=== PATIENT | male | born 1985 | race Caucasian/White ===

== ENCOUNTER 2019-10-02 11:00 | Emergency (ER) | payer OTHER ==
[~2019-10-02] VITALS: Ht 193 cm; Wt 99.5 kg
[2019-10-02 11:05] VITALS: BP 150/67
[2019-10-02] MEDS ORDERED: IV NORMAL SALINE 1,000ML 1,000 ML IV SCH (11:14)
[2019-10-02] MEDS ORDERED: ONDANSETRON PF 4 MG/2 ML VIAL. IVP ONE (11:15)
[2019-10-02] MEDS ORDERED: IOHEXOL 300 MG/ML 75 ML VIAL. IV ONE (11:30)
[2019-10-02 11:51] LABS: BASO % 1 % (0-3); EOS % 1 % (0-3); HEMATOCRIT 49.8 % (39.0-53.0); HEMOGLOBIN 16.8 g/dL (13.0-17.5); LYMPH # 1.8 x10^3/uL (1.0-4.8); LYMPH % 44 % (24-48); MEAN CORPUSCULAR HEMOGLOBIN 31 pg (25-35); MEAN CORPUSCULAR HGB CONC 34 g/dL (31-37); MEAN CORPUSCULAR VOLUME 91 fL (79-100); MONO # 0.3 x10^3/uL (0.0-1.1); MONO % 8 % (0-9); NEUT # 1.9 x10^3uL (1.8-7.7); NEUT % 47 % (31-73); PLATELET COUNT 171 x10^3/uL (140-400); RED BLOOD COUNT 5.47 x10^6/uL (4.30-5.70); RED CELL DISTRIBUTION WIDTH 12.9 % (11.5-14.5)
--- NOTE | 2019-10-02 11:58 | RAD ---
EXAM: CT Abdomen and Pelvis with IV contrast CLINICAL HISTORY: Right lower quadrant abdominal pain COMPARISON: none TECHNIQUE: Helical CT of the abdomen and pelvis was performed following the administration of intravenous contrast. Axial, coronal and sagittal reformatted images were generated. PQRS compliance statement - One or more of the following individualized dose reduction techniques were utilized for this study: 1. Automated exposure control 2. Adjustment of the mA and/or kV according to patient size 3. Use of iterative reconstruction technique FINDINGS: Lower chest: Lung bases are clear. Abdomen and Pelvis: A 1.8 cm hypodense right hepatic lobe lesion measures greater than simple fluid, nonspecific. Gallbladder is normal. No biliary ductal dilatation. Pancreas is unremarkable. Spleen is unremarkable. Adrenal glands are normal. Symmetric nephrograms. Subcentimeter hypodense left upper pole renal lesion is too small to accurately characterize. No hydronephrosis or hydroureter. Bladder is unremarkable. Appendix is normal. Moderate colonic stool content is seen. No small or large bowel dilatation. No bowel obstruction. No abdominal or pelvic ascites. Small fat-containing periumbilical hernia is seen. No abdominal or pelvic lymphadenopathy. Bones: Multilevel degenerative changes of the spine are seen. Lucent lesion within the right intertrochanteric hip with a well circumscribed margins, without definite aggressive characteristics. IMPRESSION: 1. Appendix is normal. 2. No renal tract calculus. 3. No bowel obstruction. 4. Nonspecific hypodense right hepatic lesion measures greater than simple fluid, can be further assessed by ultrasound Electronically signed by: Mandeep Gore MD (10/02/2019 11:56 AM) [id number]
[2019-10-02 12:04] LABS: ALBUMIN/GLOBULIN RATIO 1.1 (1.0-1.7); CALCIUM 9.1 mg/dL (8.5-10.1); CREATININE 1.2 mg/dL (0.7-1.3); GFR 70.2; POTASSIUM 4.1 mmol/L (3.5-5.1); TOTAL BILIRUBIN 1.8 mg/dL (0.2-1.0); TOTAL PROTEIN 7.5 g/dL (6.4-8.2)
[2019-10-02 12:23] LABS: BILIRUBIN,URINE NEG (NEG); CLARITY,URINE CLEAR; COLOR,URINE YELLOW; GLUCOSE,URINE NEG (NEG); NITRITE,URINE NEG (NEG); UROBILINOGEN,URINE 0.2 mg/dL (0.2 mg/dL)
[2019-10-02 12:24] LABS: BACTERIA,URINE 0 /HPF (0-FEW); RBC,URINE OCC /HPF (0-2); WBC,URINE OCC /HPF (0-4)
--- NOTE | 2019-10-02 12:25 | PHYS DOC ---
Past History Past Medical History: No Pertinent History Alcohol Use: Occasionally Adult General Chief Complaint Chief Complaint: NAUSEA/VOMITING/DIARRHEA HPI HPI Patient is a 34 year old male who presents with complaint of abdominal pain. The patient states that his symptoms have been present over the past 4 to 5 days. Notes that the pain seems to be centered in his right lower quadrant. Currently rates his pain as 3 out of 10 and describes it as a dull ache. Denies any worsening sharp pain with activity or movement. Does state that the pain does not seem to be there while at rest but that does notice the pain when he is active. The patient states that he had vomiting upon onset 4 days ago. Did not have any nausea or vomiting until this morning when he had an episode of dry heaves. Has not had any fevers. Denies any known sick contacts. The patient states that he went to urgent care for evaluation last night and was placed on nausea medication. Due to return of symptoms he went to urgent care this morning and was referred to the emergency department for further evaluation due to the presence of right lower quadrant pain. Review of Systems Review of Systems Constitutional: Denies fever or chills [] Eyes: Denies change in visual acuity, redness, or eye pain [] HENT: Denies nasal congestion or sore throat [] Respiratory: Denies cough or shortness of breath [] Cardiovascular: Denies chest pain or edema [] GI: Abdominal pain, nausea, vomiting, denies bloody stools or diarrhea [] : Denies dysuria or hematuria [] Musculoskeletal: Denies back pain or joint pain [] Integument: Denies rash or skin lesions [] Neurologic: Denies headache, focal weakness or sensory changes [] All other systems were reviewed and found to be within normal limits, except as documented in this note. Current Medications Current Medications Current Medications Medications (Trade) Dose Ordered Sig/José Miguel Start Time Stop Time Status Last Admin Dose Admin Iohexol (Omnipaque 300 Mg/ml) 75 ml 1X ONCE 10/02/19 11:30 10/02/19 11:31 DC 10/02/19 11:32 75 ML Ondansetron HCl (Zofran) 4 mg 1X ONCE 10/02/19 11:15 10/02/19 11:17 DC 10/02/19 11:44 4 MG Sodium Chloride 1,000 ml @ 1,000 mls/hr Q1H 10/02/19 11:14 10/02/19 12:13 DC 10/02/19 11:44 1,000 MLS/HR Allergies Allergies Allergies Coded Allergies Type Severity Reaction Last Updated Verified sulfamethoxazole Allergy Unknown 10/02/19 Yes trimethoprim Allergy Unknown 10/02/19 Yes Physical Exam Physical Exam Constitutional: Well developed, well nourished, no acute distress, non-toxic appearance. [] HENT: Normocephalic, atraumatic, bilateral external ears normal, oropharynx moist, no oral exudates, nose normal. [] Eyes: PERRLA, EOMI, conjunctiva normal, no discharge. [] Neck: Normal range of motion, no tenderness, supple, no stridor. [] Cardiovascular:Heart rate regular rhythm, no murmur [] Lungs & Thorax: Bilateral breath sounds clear to auscultation [] Abdomen: Bowel sounds normal, soft, n mild tenderness palpation in the right lower quadrant, no guarding or rebound tenderness, no masses, no pulsatile masses. [] Skin: Warm, dry, no erythema, no rash. [] Back: No tenderness, no CVA tenderness. [] Extremities: No tenderness, no cyanosis, no clubbing, ROM intact, no edema. [] Neurologic: Alert and oriented X 3, normal motor function, normal sensory function, no focal deficits noted. [] Current Patient Data Vital Signs Vital Signs Date Time Temp Pulse Resp B/P (MAP) Pulse Ox O2 Delivery O2 Flow Rate FiO2 10/02/19 11:05 98.3 60 16 150/67 (94) 98 Room Air Lab Results Laboratory Tests Test 10/02/19 11:30 10/02/19 11:43 White Blood Count 4.0 x10^3/uL Red Blood Count 5.47 x10^6/uL Hemoglobin 16.8 g/dL Hematocrit 49.8 % Mean Corpuscular Volume 91 fL Mean Corpuscular Hemoglobin 31 pg Mean Corpuscular Hemoglobin Concent 34 g/dL Red Cell Distribution Width 12.9 % Platelet Count 171 x10^3/uL Neutrophils (%) (Auto) 47 % Lymphocytes (%) (Auto) 44 % Monocytes (%) (Auto) 8 % Eosinophils (%) (Auto) 1 % Basophils (%) (Auto) 1 % Neutrophils # (Auto) 1.9 x10^3uL Lymphocytes # (Auto) 1.8 x10^3/uL Monocytes # (Auto) 0.3 x10^3/uL Eosinophils # (Auto) 0.0 x10^3/uL Basophils # (Auto) 0.0 x10^3/uL Sodium Level 143 mmol/L Potassium Level 4.1 mmol/L Chloride Level 106 mmol/L Carbon Dioxide Level 29 mmol/L Anion Gap 8 Blood Urea Nitrogen 17 mg/dL Creatinine 1.2 mg/dL Estimated GFR (Cockcroft-Gault) 70.2 BUN/Creatinine Ratio 14 Glucose Level 98 mg/dL Calcium Level 9.1 mg/dL Total Bilirubin 1.8 mg/dL Aspartate Amino Transf (AST/SGOT) 18 U/L Alanine Aminotransferase (ALT/SGPT) 23 U/L Alkaline Phosphatase 91 U/L Total Protein 7.5 g/dL Albumin 4.0 g/dL Albumin/Globulin Ratio 1.1 Lipase 125 U/L Urine Collection Type Unknown Urine Color Yellow Urine Clarity Clear Urine pH 6.5 Urine Specific [place] 1.020 Urine Protein Neg Urine Glucose (UA) Neg mg/dL Urine Ketones (Stick) Neg mg/dL Urine Blood Neg Urine Nitrite Neg Urine Bilirubin Neg Urine Urobilinogen Dipstick 0.2 mg/dL Urine Leukocyte Esterase Neg Urine RBC Occ /HPF Urine WBC Occ /HPF Urine Squamous Epithelial Cells None /LPF Urine Bacteria 0 /HPF Current Medications Medications (Trade) Dose Ordered Sig/José Miguel Route PRN Reason Start Time Stop Time Status Last Admin Dose Admin Sodium Chloride 1,000 ml @ 1,000 mls/hr Q1H IV 10/02/19 11:14 10/02/19 12:13 DC 10/02/19 11:44 Ondansetron HCl (Zofran) 4 mg 1X ONCE IVP 10/02/19 11:15 10/02/19 11:17 DC 10/02/19 11:44 Iohexol (Omnipaque 300 Mg/ml) 75 ml 1X ONCE IV 10/02/19 11:30 10/02/19 11:31 DC 10/02/19 11:32 EKG EKG Not performed [] Radiology/Procedures Radiology/Procedures [address] [address] IMAGING REPORT Signed PATIENT: ALFONZO MAIER ACCOUNT: [id number] : 1985 LOCATION: ER AGE: 34 SEX: M EXAM STATUS: REG ER ORD. PHYSICIAN: LEESA RAZO MD REASON: Right lower quadrant abdominal pain PROCEDURE: CT ABD PELV W/ IV CONTRST ONLY EXAM: CT Abdomen and Pelvis with IV contrast CLINICAL HISTORY: Right lower quadrant abdominal pain COMPARISON: none TECHNIQUE: Helical CT of the abdomen and pelvis was performed following the administration of intravenous contrast. Axial, coronal and sagittal reformatted images were generated. PQRS compliance statement - One or more of the following individualized dose reduction techniques were utilized for this study: 1. Automated exposure control 2. Adjustment of the mA and/or kV according to patient size 3. Use of iterative reconstruction technique FINDINGS: Lower chest: Lung bases are clear. Abdomen and Pelvis: A 1.8 cm hypodense right hepatic lobe lesion measures greater than simple fluid, nonspecific. Gallbladder is normal. No biliary ductal dilatation. Pancreas is unremarkable. Spleen is unremarkable. Adrenal glands are normal. Symmetric nephrograms. Subcentimeter hypodense left upper pole renal lesion is too small to accurately characterize. No hydronephrosis or hydroureter. Bladder is unremarkable. Appendix is normal. Moderate colonic stool content is seen. No small or large bowel dilatation. No bowel obstruction. No abdominal or pelvic ascites. Small fat-containing periumbilical hernia is seen. No abdominal or pelvic lymphadenopathy. Bones: Multilevel degenerative changes of the spine are seen. Lucent lesion within the right intertrochanteric hip with a well circumscribed margins, without definite aggressive characteristics. IMPRESSION: 1. Appendix is normal. 2. No renal tract calculus. 3. No bowel obstruction. 4. Nonspecific hypodense right hepatic lesion measures greater than simple fluid, can be further assessed by ultrasound Electronically signed by: Mandeep Eldridge MD (10/02/2019 11:56 AM) [id number] DICTATED AND SIGNED BY: MANDEEP ELDRIDGE MD DATE: 10/02/19 1156 CC: LEESA RAZO MD; PCP,UNKNOWN ~ [] Course & Med Decision Making Course & Med Decision Making Pertinent Labs and Imaging studies reviewed. (See chart for details) Patient was started on IV fluids and Zofran in the emergency department. Patient's blood work showed a mildly elevated bilirubin level of 1.8 with otherwise normal liver function testing. Urinalysis was normal. Due to persistent right lower quadrant pain, a CT scan was ordered of the abdomen and pelvis. No evidence of obstructive uropathy, appendicitis, or acute inflammatory process. Incidental finding of small hepatic lobe lesion was noted and communicated to the patient. Advised that this would need further evaluation with outpatient ultrasound imaging which can be ordered by the patient's primary care physician. The patient's condition is stable and patient is appropriate for discharge at this time with outpatient follow-up. Advised use of Zofran and mild analgesics such as Tylenol and ibuprofen for further treatment of symptoms. Advise follow-up within the next 3-5 days with patient's primary doctor for reevaluation and return to the emergency department for any worsening symptoms. Patient voiced understanding and agreement with treatment plan. PPE: Leesa Hoffman MD, wore a level 3 mask, eye protection, and gloves during this patient encounter. [] Dragon Disclaimer Dragon Disclaimer This electronic medical record was generated, in whole or in part, using a voice recognition dictation system. Departure Departure: Impression: Primary Impression: Abdominal pain Additional Impression: Nausea and vomiting Disposition: 01 HOME/RESIDENCE PRIOR TO ADM Condition: STABLE Referrals: PCP,UNKNOWN (PCP) Patient Instructions: Abdominal Pain (Nonspecific), Nausea and Vomiting Additional Instructions: Follow-up with your primary care provider in the next 3 to 5 days for reevaluation. Return to the emergency department for any worsening symptoms. Problem Qualifiers Primary Impression: Abdominal pain Abdominal location: right lower quadrant Qualified Codes: R10.31 - Right lower quadrant pain Additional Impression: Nausea and vomiting Vomiting type: unspecified Vomiting Intractability: non-intractable Qualified Codes: R11.2 - Nausea with vomiting, unspecified LEESA RAZO MD October 02, 2019 12:25
== END 2019-10-02 13:05 | disposition home or self-care (01) ==
LOC: ER 11:00
DX: R10.31 Right lower quadrant pain (principal); R11.2 Nausea with vomiting, unspecified; Z88.2 Allergy status to sulfonamides; Z88.1 Allergy status to other antibiotic agents
CPT/HCPCS: 36415; 74177; 80053; 81001; 83690; 85025; 96361; 96374; 99285; J2405; Q9967; J7030